=== PATIENT | male | born 1970 | race Two or more races ===

== ENCOUNTER 2020-12-16 04:41 | Inpatient (IN) | payer MEDICAID, OTHER ==
[~2020-12-16] VITALS: Ht 175.3 cm; Wt 78.0 kg
[~2020-12-16 04:41] MED LIST: ALBU6.7H9 INH; BACL-141 MT; BENZ-16 MT; IBUP-2029 MT; MED4 MT
[2020-12-16] MEDS ORDERED: SODIUM CHLORIDE 0.9% 1000ML BAG (SEPSIS BOLUS) IV ONE (05:30)
[2020-12-16 05:45] LABS: CHLORIDE 100 mEq/L (98-107)
[2020-12-16 05:46] LABS: HEMATOCRIT. 47.7 % (42.0-52.0); HEMOGLOBIN. 15.8 g/dL (14.0-18.0); MEAN CORPUSCULAR HEMOGLOBIN 30.4 pg (28.0-32.0); MEAN PLATELET VOLUME 8.7 fl (7.4-10.4); PLATELET 299 x1000/uL (130-400); RED BLOOD CELL COUNT 5.19 mill/uL (4.7-6.1)
[2020-12-16 05:53] LABS: CREATINE KINASE 149 IU/L (39-308)
[2020-12-16] MEDS ORDERED: CEFTRIAXONE 1 G PREMIX 50 ML IV ONE (06:15)
[2020-12-16] MEDS ORDERED: AZITHROMYCIN 500 MG in DEXT 5% WATER 250 ML IV SCH (06:15)
[2020-12-16 06:29] LABS: PLATELET ESTIMATE NORMAL
[2020-12-16 07:03] LABS: BG CARBOXYHEMOGLOBIN 0.9 % (0.5-1.5); BG DEOXYHEMOGLOBIN 12.1 % (0.0-5.0); BG FRACTION INSPIRED OXYGEN 100; BG HCO3 ACT 22.1 mmol/L (22.0-26.0); BG METHEMOGLOBIN 0.3 % (0.0-1.5); BG OXYGEN SATURATION 87.8 % (92.0-98.5); BG OXYHEMOGLOBIN 86.7 % (94.0-97.0); BG PCO2 29.8 mmHg (35.0-45.0); BG PH 7.489 (7.350-7.450); BG PO2 50.3 mmHg (75.0-100.0); BG SAMPLE SITE RIGHT RADIAL
[2020-12-16] MEDS ORDERED: MAGNESIUM/ALUMINUM HYDROXIDE/SIMETHICONE 30ML UDC PO PRN (07:45)
[2020-12-16] MEDS ORDERED: ACETAMINOPHEN 325MG TABLET PO PRN (07:45)
[2020-12-16] MEDS ORDERED: ONDANSETRON HCL 4MG/2ML INJ IV PRN (07:45)
[2020-12-16] MEDS ORDERED: ALBUTEROL 6.7GM HFA INHALER ORI PRN (07:45)
[2020-12-16] MEDS ORDERED: DOCUSATE SODIUM 100MG CAPSULE PO PRN (07:45)
[2020-12-16] MEDS ORDERED: KETOROLAC 15MG/ML VIAL IV PRN (07:45)
[2020-12-16] MEDS ORDERED: CLONIDINE 0.1MG TABLET PO PRN (07:45)
[2020-12-16 08:23] LABS: CLARITY URINE CLEAR (CLEAR); COLOR URINE DARK YELLOW (YELLOW); KETONES URINE 2+ (NEGATIVE); LEUKOCYTE ESTERASE URINE NEGATIVE (NEGATIVE); NITRITE URINE NEGATIVE (NEGATIVE); OCCULT BLOOD URINE 1+ (NEGATIVE); PROTEIN URINE 3+ (NEGATIVE); SPECIFIC GRAVITY URINE 1.025 (1.005-1.030)
[2020-12-16 08:58] LABS: OPIATES URINE SCREEN NEGATIVE (NEGATIVE); PHENCYCLIDINE URINE SCREEN NEGATIVE (NEGATIVE)
[2020-12-16 08:59] LABS: *AMPHETAMINES SCREEN URINE NEGATIVE (NEGATIVE); *BARBITURATES SCREEN URINE NEGATIVE (NEGATIVE); *BENZODIAZEPINES SCREEN URINE NEGATIVE (NEGATIVE); *COCAINE SCREEN URINE NEGATIVE (NEGATIVE); CANNABINOID URINE SCREEN NEGATIVE (NEGATIVE); METHADONE URINE SCREEN NEGATIVE (NEGATIVE)
[2020-12-16] MEDS ORDERED: CEFTRIAXONE 1 G PREMIX 50 ML IV SCH (09:00)
[2020-12-16 09:09] LABS: FIBRINOGEN 612 mg/dL (200-400); INR 1.1; PROTHROMBIN TIME 11.6 sec (9.6-11.0)
[2020-12-16 09:16] LABS: FOLIC ACID (FOLATE) SERUM 13.5 ng/mL (>5.38)
[2020-12-16 09:31] LABS: D-DIMER > 35.20 mg/L FEU (<0.50)
[2020-12-16] MEDS: ASPIRIN 81MG EC TABLET PO SCH (10:26)
[2020-12-16] MEDS: DEXAMETHASONE 10 MG/ML VIAL IV SCH (10:26)
[2020-12-16] MEDS: GUAIFENESIN/DM 600MG/30MG ER TAB 12HR PO SCH ×2 (10:26→20:57)
[2020-12-16] MEDS: ENOXAPARIN 40MG/0.4ML SYR SUBCUT SCH (10:26)
[2020-12-16] MEDS: ZINC SULFATE 220 MG ( 50 ) CAPSULE PO SCH (10:27)
[2020-12-16] MEDS: FAMOTIDINE 20MG TABLET PO SCH ×2 (10:27→20:56)
[2020-12-16] MEDS: ASCORBIC ACID 500 MG TABLET PO SCH ×2 (10:27→20:56)
[2020-12-16] MEDS: ACETAMINOPHEN 325MG TABLET PO PRN ×2 (13:31→20:56)
[2020-12-16 14:07] VITALS: BP 142/93
[2020-12-16 16:00] VITALS: BP 128/88
[2020-12-16] MEDS ORDERED: DEXTROSE 50% WATER 50ML SYRINGE IV PRN (17:30)
[2020-12-16] MEDS: BLOOD SUGAR DIAGNOSTIC STRIP TEST SCH ×2 (17:44→20:58)
[2020-12-16] MEDS: INSULIN LISPRO 100 UNITS/ML SUBCUT SCH ×3 (17:47→21:00)
[2020-12-16 20:00] VITALS: BP 127/91
[2020-12-16] MEDS ORDERED: ZOLPIDEM TARTRATE 5MG TABLET PO PRN (21:00)
[2020-12-17] VITALS: BP 123/85
[2020-12-17 00:04] LABS: CREATINE KINASE 179 IU/L (39-308)
[2020-12-17 00:05] LABS: CREATINE KINASE MB FRACTION 2.6 ng/mL (0.5-3.6)
[2020-12-17 04:00] VITALS: BP 90/57
[2020-12-17] MEDS ORDERED: AZITHROMYCIN 500 MG in DEXT 5% WATER 250 ML IV SCH (06:00)
[2020-12-17] MEDS ORDERED: CEFTRIAXONE 1,000 MG in DEXTROSE 5% WATER 50 ML IV SCH (06:00)
[2020-12-17 08:00] VITALS: BP 134/81
[2020-12-17] MEDS: INSULIN LISPRO 100 UNITS/ML SUBCUT SCH ×4 (08:10→21:14)
[2020-12-17] MEDS: GUAIFENESIN/DM 600MG/30MG ER TAB 12HR PO SCH ×2 (08:33→21:15)
[2020-12-17] MEDS: ENOXAPARIN 40MG/0.4ML SYR SUBCUT SCH (08:34)
[2020-12-17] MEDS: ASCORBIC ACID 500 MG TABLET PO SCH ×2 (08:34→21:15)
[2020-12-17] MEDS: ZINC SULFATE 220 MG ( 50 ) CAPSULE PO SCH (08:34)
[2020-12-17] MEDS: DEXAMETHASONE 10 MG/ML VIAL IV SCH (08:34)
[2020-12-17] MEDS: ASPIRIN 81MG EC TABLET PO SCH (08:34)
[2020-12-17] MEDS: FAMOTIDINE 20MG TABLET PO SCH ×2 (08:34→21:15)
[2020-12-17] MEDS: AZITHROMYCIN 500 MG in DEXT 5% WATER 250 ML IV SCH (08:35)
[2020-12-17] MEDS: CEFTRIAXONE 1,000 MG in DEXTROSE 5% WATER 50 ML IV SCH (08:35)
[2020-12-17] MEDS: BLOOD SUGAR DIAGNOSTIC STRIP TEST SCH ×4 (08:35→21:15)
[2020-12-17] MEDS: ALBUTEROL 6.7GM HFA INHALER ORI SCH ×3 (08:40→21:15)
[2020-12-17] MEDS: CHOLECALCIFEROL (D3) 1000 UNIT TABLET PO SCH (08:41)
[2020-12-17] MEDS ORDERED: CEFTRIAXONE 1 G PREMIX 50 ML IV SCH (09:00)
[2020-12-17 10:01] LABS: HEMOGLOBIN. 15.6 g/dL (14.0-18.0); MEAN CORPUSCULAR HEMOGLOBIN 30.6 pg (28.0-32.0); MEAN CORPUSCULAR VOLUME 92.4 fL (80.0-94.0); MEAN PLATELET VOLUME 9.2 fl (7.4-10.4); PLATELET 214 x1000/uL (130-400); RED BLOOD CELL COUNT 5.09 mill/uL (4.7-6.1); RED CELL DISTRIBUTION WIDTH 12.9 % (11.6-14.6)
[2020-12-17 10:10] LABS: CHLORIDE 104 mEq/L (98-107)
[2020-12-17 10:16] LABS: PHOSPHORUS 2.2 mg/dL (2.5-4.9)
[2020-12-17 12:00] VITALS: BP 128/71
[2020-12-17] MEDS: ACETAMINOPHEN 325MG TABLET PO PRN ×2 (15:59→23:47)
[2020-12-17 16:08] VITALS: BP 116/79
[2020-12-17 16:51] LABS: PLATELET ESTIMATE NORMAL
[2020-12-17 20:00] VITALS: BP 125/88
[2020-12-18] VITALS: BP 116/75
[2020-12-18 04:00] VITALS: BP 109/80
[2020-12-18] MEDS: GUAIFENESIN 200MG/10ML SUGAR FREE UDC PO PRN (04:38)
[2020-12-18] MEDS: ALBUTEROL 6.7GM HFA INHALER ORI SCH ×4 (04:39→22:08)
[2020-12-18] MEDS: BLOOD SUGAR DIAGNOSTIC STRIP TEST SCH ×4 (07:24→21:00)
[2020-12-18] MEDS: INSULIN LISPRO 100 UNITS/ML SUBCUT SCH ×4 (07:24→22:06)
[2020-12-18 08:00] VITALS: BP 124/81
[2020-12-18] MEDS: CEFTRIAXONE 1,000 MG in DEXTROSE 5% WATER 50 ML IV SCH (08:12)
[2020-12-18] MEDS: ENOXAPARIN 40MG/0.4ML SYR SUBCUT SCH (08:13)
[2020-12-18] MEDS: DEXAMETHASONE 10 MG/ML VIAL IV SCH (08:13)
[2020-12-18] MEDS: AZITHROMYCIN 500 MG in DEXT 5% WATER 250 ML IV SCH (08:13)
[2020-12-18] MEDS: ZINC SULFATE 220 MG ( 50 ) CAPSULE PO SCH (08:13)
[2020-12-18] MEDS: GUAIFENESIN/DM 600MG/30MG ER TAB 12HR PO SCH ×2 (08:13→22:06)
[2020-12-18] MEDS: ASPIRIN 81MG EC TABLET PO SCH (08:14)
[2020-12-18] MEDS: CHOLECALCIFEROL (D3) 1000 UNIT TABLET PO SCH (08:14)
[2020-12-18] MEDS: FAMOTIDINE 20MG TABLET PO SCH ×2 (08:14→22:06)
[2020-12-18] MEDS: ASCORBIC ACID 500 MG TABLET PO SCH ×2 (08:14→22:06)
[2020-12-18] MEDS: ACETAMINOPHEN 325MG TABLET PO PRN ×2 (08:14→12:25)
[2020-12-18 12:00] VITALS: BP 124/83
[2020-12-18 15:52] VITALS: BP 124/87
[2020-12-18 20:00] VITALS: BP 135/87
[2020-12-18] MEDS ORDERED: IOHEXOL-350 100 ML BOTTLE ONE (23:27)
[2020-12-19] VITALS: BP 120/86
[2020-12-19 04:00] VITALS: BP 132/86
[2020-12-19] MEDS: ALBUTEROL 6.7GM HFA INHALER ORI SCH ×4 (04:16→21:15)
[2020-12-19] MEDS: ACETAMINOPHEN 325MG TABLET PO PRN ×3 (04:24→12:34)
[2020-12-19] MEDS: BLOOD SUGAR DIAGNOSTIC STRIP TEST SCH ×4 (07:40→21:15)
[2020-12-19] MEDS: NITROGLYCERIN 0.4MG TABLET SL SL PRN (07:44)
[2020-12-19 07:59] LABS: HEMOGLOBIN. 14.6 g/dL (14.0-18.0); MEAN CORPUSCULAR HEMOGLOBIN 31.3 pg (28.0-32.0); MEAN CORPUSCULAR VOLUME 91.8 fL (80.0-94.0); MEAN PLATELET VOLUME 8.9 fl (7.4-10.4); PLATELET 185 x1000/uL (130-400); RED BLOOD CELL COUNT 4.68 mill/uL (4.7-6.1); RED CELL DISTRIBUTION WIDTH 13.2 % (11.6-14.6)
[2020-12-19 08:00] VITALS: BP 140/76
[2020-12-19] MEDS: INSULIN LISPRO 100 UNITS/ML SUBCUT SCH ×4 (08:10→21:00)
[2020-12-19] MEDS ORDERED: MORPHINE SULFATE 2 MG/ML CPJ (NOT FOR IM USE) IV SCH (08:15)
[2020-12-19] MEDS: CEFTRIAXONE 1,000 MG in DEXTROSE 5% WATER 50 ML IV SCH (08:23)
[2020-12-19] MEDS: DEXAMETHASONE 10 MG/ML VIAL IV SCH (08:24)
[2020-12-19] MEDS: ENOXAPARIN 40MG/0.4ML SYR SUBCUT SCH (08:24)
[2020-12-19] MEDS: CHOLECALCIFEROL (D3) 1000 UNIT TABLET PO SCH (08:25)
[2020-12-19] MEDS: FAMOTIDINE 20MG TABLET PO SCH ×2 (08:25→21:11)
[2020-12-19] MEDS: ZINC SULFATE 220 MG ( 50 ) CAPSULE PO SCH (08:25)
[2020-12-19] MEDS: GUAIFENESIN/DM 600MG/30MG ER TAB 12HR PO SCH ×2 (08:25→21:11)
[2020-12-19] MEDS: ASPIRIN 81MG EC TABLET PO SCH (08:26)
[2020-12-19] MEDS: ASCORBIC ACID 500 MG TABLET PO SCH ×2 (08:51→21:11)
[2020-12-19] MEDS: AZITHROMYCIN 500 MG in DEXT 5% WATER 250 ML IV SCH (08:53)
[2020-12-19 08:55] LABS: CHLORIDE 103 mEq/L (98-107)
[2020-12-19] MEDS: CEFEPIME 1,000 MG in DEXTROSE 5% WATER 50 ML IV SCH ×2 (11:20→21:11)
[2020-12-19 12:00] VITALS: BP 105/80
[2020-12-19 12:17] LABS: CREATINE KINASE 77 IU/L (39-308)
[2020-12-19 12:18] LABS: CREATINE KINASE MB FRACTION 1.3 ng/mL (0.5-3.6)
[2020-12-19 13:36] LABS: PLATELET ESTIMATE NORMAL
[2020-12-19 16:00] VITALS: BP 126/89
[2020-12-19 19:50] VITALS: BP 141/82
[2020-12-20] VITALS (8 sets, daily range): BP systolic 117–140; BP diastolic 79–95
[2020-12-20] MEDS: ACETAMINOPHEN 325MG TABLET PO PRN (01:45)
[2020-12-20] MEDS: ALBUTEROL 6.7GM HFA INHALER ORI SCH ×5 (03:44→21:15)
[2020-12-20] MEDS: INSULIN LISPRO 100 UNITS/ML SUBCUT SCH ×4 (07:24→21:00)
[2020-12-20] MEDS: BLOOD SUGAR DIAGNOSTIC STRIP TEST SCH ×4 (07:24→21:30)
[2020-12-20] MEDS: CEFEPIME 1,000 MG in DEXTROSE 5% WATER 50 ML IV SCH ×2 (08:38→21:23)
[2020-12-20] MEDS: ASCORBIC ACID 500 MG TABLET PO SCH ×2 (08:39→21:23)
[2020-12-20] MEDS: ASPIRIN 81MG EC TABLET PO SCH (08:39)
[2020-12-20] MEDS: GUAIFENESIN/DM 600MG/30MG ER TAB 12HR PO SCH ×2 (08:39→21:23)
[2020-12-20] MEDS: ZINC SULFATE 220 MG ( 50 ) CAPSULE PO SCH (08:39)
[2020-12-20] MEDS: FAMOTIDINE 20MG TABLET PO SCH ×2 (08:39→21:23)
[2020-12-20] MEDS: CHOLECALCIFEROL (D3) 1000 UNIT TABLET PO SCH (08:39)
[2020-12-20] MEDS: DEXAMETHASONE 10 MG/ML VIAL IV SCH (08:39)
[2020-12-20] MEDS: ENOXAPARIN 40MG/0.4ML SYR SUBCUT SCH (08:41)
[2020-12-20] MEDS: NITROGLYCERIN 0.4MG TABLET SL SL PRN ×2 (08:59→09:04)
[2020-12-20] MEDS: AZITHROMYCIN 500 MG in DEXT 5% WATER 250 ML IV SCH (10:01)
[2020-12-21] MEDS: ALBUTEROL 6.7GM HFA INHALER ORI SCH ×4 (03:18→20:19)
[2020-12-21 04:00] VITALS: BP 122/83
[2020-12-21] MEDS: BLOOD SUGAR DIAGNOSTIC STRIP TEST SCH ×4 (07:40→20:01)
[2020-12-21 08:00] VITALS: BP 123/84
[2020-12-21] MEDS: INSULIN LISPRO 100 UNITS/ML SUBCUT SCH ×4 (08:10→20:30)
[2020-12-21] MEDS: CEFEPIME 1,000 MG in DEXTROSE 5% WATER 50 ML IV SCH ×2 (08:45→20:01)
[2020-12-21] MEDS: ENOXAPARIN 40MG/0.4ML SYR SUBCUT SCH (08:46)
[2020-12-21] MEDS: ASCORBIC ACID 500 MG TABLET PO SCH ×2 (08:46→20:01)
[2020-12-21] MEDS: GUAIFENESIN/DM 600MG/30MG ER TAB 12HR PO SCH ×2 (08:46→20:01)
[2020-12-21] MEDS: ZINC SULFATE 220 MG ( 50 ) CAPSULE PO SCH (08:46)
[2020-12-21] MEDS: ASPIRIN 81MG EC TABLET PO SCH (08:47)
[2020-12-21] MEDS: ACETAMINOPHEN 325MG TABLET PO PRN ×2 (08:47→22:38)
[2020-12-21] MEDS: DEXAMETHASONE 10 MG/ML VIAL IV SCH (08:47)
[2020-12-21] MEDS: FAMOTIDINE 20MG TABLET PO SCH ×2 (08:47→20:01)
[2020-12-21] MEDS: CHOLECALCIFEROL (D3) 1000 UNIT TABLET PO SCH (08:47)
[2020-12-21 12:00] VITALS: BP 144/96
[2020-12-21 16:00] VITALS: BP 130/90
[2020-12-21 16:43] LABS: BG BASE EXCESS 0.7 mmol/L (-2.0-2.0); BG CARBOXYHEMOGLOBIN 0.3 % (0.5-1.5); BG DEOXYHEMOGLOBIN 0.9 % (0.0-5.0); BG HCO3 ACT 24.4 mmol/L (22.0-26.0); BG METHEMOGLOBIN 0.2 % (0.0-1.5); BG OXYGEN SATURATION 99.1 % (92.0-98.5); BG OXYHEMOGLOBIN 98.6 % (94.0-97.0); BG PCO2 36.5 mmHg (35.0-45.0); BG PH 7.443 (7.350-7.450); BG PO2 187.8 mmHg (75.0-100.0); BG SAMPLE SITE RIGHT RADIAL; BG TOTAL HEMOGLOBIN 15.5 g/dL (12.0-18.0); BG VENT MODE MASK - CPAP
[2020-12-21 20:00] VITALS: BP 111/83
[2020-12-22] VITALS: BP 121/91
[2020-12-22] MEDS: ALBUTEROL 6.7GM HFA INHALER ORI SCH ×5 (03:10→21:39)
[2020-12-22 04:00] VITALS: BP 121/87
[2020-12-22] MEDS: BLOOD SUGAR DIAGNOSTIC STRIP TEST SCH ×4 (06:07→20:51)
[2020-12-22] MEDS: INSULIN LISPRO 100 UNITS/ML SUBCUT SCH ×4 (06:08→20:50)
[2020-12-22 08:00] VITALS: BP 125/83
[2020-12-22] MEDS: CEFEPIME 1,000 MG in DEXTROSE 5% WATER 50 ML IV SCH ×2 (09:44→20:49)
[2020-12-22] MEDS: FAMOTIDINE 20MG TABLET PO SCH ×2 (09:45→20:49)
[2020-12-22] MEDS: GUAIFENESIN/DM 600MG/30MG ER TAB 12HR PO SCH ×2 (09:45→20:49)
[2020-12-22] MEDS: ZINC SULFATE 220 MG ( 50 ) CAPSULE PO SCH (09:45)
[2020-12-22] MEDS: CHOLECALCIFEROL (D3) 1000 UNIT TABLET PO SCH (09:45)
[2020-12-22] MEDS: ASCORBIC ACID 500 MG TABLET PO SCH ×2 (09:45→20:49)
[2020-12-22] MEDS: ASPIRIN 81MG EC TABLET PO SCH (09:45)
[2020-12-22] MEDS: ENOXAPARIN 40MG/0.4ML SYR SUBCUT SCH (09:47)
[2020-12-22] MEDS: DEXAMETHASONE 10 MG/ML VIAL IV SCH (11:58)
[2020-12-22 12:00] VITALS: BP 124/82
[2020-12-22] MEDS: GUAIFENESIN 200MG/10ML SUGAR FREE UDC PO PRN (15:27)
[2020-12-22 16:00] VITALS: BP 124/86
[2020-12-22 20:00] VITALS: BP 131/89
[2020-12-23] VITALS: BP 118/85
[2020-12-23] MEDS: ALBUTEROL 6.7GM HFA INHALER ORI SCH ×4 (01:42→21:16)
[2020-12-23 04:00] VITALS: BP 117/88
[2020-12-23] MEDS: GUAIFENESIN 200MG/10ML SUGAR FREE UDC PO PRN ×2 (06:20→22:57)
[2020-12-23] MEDS: BLOOD SUGAR DIAGNOSTIC STRIP TEST SCH ×4 (07:33→20:41)
[2020-12-23 08:00] VITALS: BP 129/83
[2020-12-23] MEDS: INSULIN LISPRO 100 UNITS/ML SUBCUT SCH ×4 (08:08→20:41)
[2020-12-23] MEDS: DEXAMETHASONE 10 MG/ML VIAL IV SCH (08:11)
[2020-12-23] MEDS: ENOXAPARIN 40MG/0.4ML SYR SUBCUT SCH (08:11)
[2020-12-23] MEDS: CEFEPIME 1,000 MG in DEXTROSE 5% WATER 50 ML IV SCH ×2 (08:12→20:40)
[2020-12-23] MEDS: ASCORBIC ACID 500 MG TABLET PO SCH ×2 (09:00→20:41)
[2020-12-23] MEDS: GUAIFENESIN/DM 600MG/30MG ER TAB 12HR PO SCH ×2 (09:00→20:40)
[2020-12-23] MEDS: FAMOTIDINE 20MG TABLET PO SCH ×2 (09:00→20:41)
[2020-12-23] MEDS: ZINC SULFATE 220 MG ( 50 ) CAPSULE PO SCH (09:00)
[2020-12-23] MEDS: ASPIRIN 81MG EC TABLET PO SCH (09:00)
[2020-12-23] MEDS: CHOLECALCIFEROL (D3) 1000 UNIT TABLET PO SCH (09:00)
[2020-12-23 12:00] VITALS: BP 117/82
[2020-12-23 16:00] VITALS: BP 122/85
[2020-12-23 20:00] VITALS: BP_SYST 120; BP_DIAS 81; BP_DIAS 84
[2020-12-24] VITALS: BP 117/78
[2020-12-24] MEDS: ALBUTEROL 6.7GM HFA INHALER ORI SCH ×2 (01:07→15:00)
[2020-12-24 04:00] VITALS: BP 127/83
[2020-12-24] MEDS: INSULIN LISPRO 100 UNITS/ML SUBCUT SCH ×4 (07:42→20:32)
[2020-12-24 08:00] VITALS: BP 115/77
[2020-12-24] MEDS: BLOOD SUGAR DIAGNOSTIC STRIP TEST SCH ×4 (08:17→20:32)
[2020-12-24] MEDS: GUAIFENESIN/DM 600MG/30MG ER TAB 12HR PO SCH ×2 (08:18→20:32)
[2020-12-24] MEDS: ZINC SULFATE 220 MG ( 50 ) CAPSULE PO SCH (08:19)
[2020-12-24] MEDS: ASCORBIC ACID 500 MG TABLET PO SCH ×2 (08:19→20:32)
[2020-12-24] MEDS: ASPIRIN 81MG EC TABLET PO SCH (08:19)
[2020-12-24] MEDS: CHOLECALCIFEROL (D3) 1000 UNIT TABLET PO SCH (08:19)
[2020-12-24] MEDS: FAMOTIDINE 20MG TABLET PO SCH ×2 (08:19→20:32)
[2020-12-24] MEDS: DEXAMETHASONE 10 MG/ML VIAL IV SCH (08:20)
[2020-12-24] MEDS: ENOXAPARIN 40MG/0.4ML SYR SUBCUT SCH (08:20)
[2020-12-24] MEDS: CEFEPIME 1,000 MG in DEXTROSE 5% WATER 50 ML IV SCH ×2 (08:22→20:32)
[2020-12-24 12:05] VITALS: BP 117/79
[2020-12-24 16:07] VITALS: BP 121/84
[2020-12-24 20:00] VITALS: BP 117/84
[2020-12-25] VITALS: BP 108/82
[2020-12-25] MEDS: GUAIFENESIN 200MG/10ML SUGAR FREE UDC PO PRN (00:55)
[2020-12-25 04:00] VITALS: BP 127/80
[2020-12-25] MEDS: ALBUTEROL 6.7GM HFA INHALER ORI SCH ×4 (05:58→21:38)
[2020-12-25] MEDS: BLOOD SUGAR DIAGNOSTIC STRIP TEST SCH ×4 (06:56→21:25)
[2020-12-25 08:00] VITALS: BP 120/79
[2020-12-25] MEDS: CHOLECALCIFEROL (D3) 1000 UNIT TABLET PO SCH (08:51)
[2020-12-25] MEDS: ASPIRIN 81MG EC TABLET PO SCH (08:51)
[2020-12-25] MEDS: GUAIFENESIN/DM 600MG/30MG ER TAB 12HR PO SCH ×2 (08:51→21:39)
[2020-12-25] MEDS: ASCORBIC ACID 500 MG TABLET PO SCH ×2 (08:51→21:38)
[2020-12-25] MEDS: FAMOTIDINE 20MG TABLET PO SCH ×2 (08:51→21:39)
[2020-12-25] MEDS: ZINC SULFATE 220 MG ( 50 ) CAPSULE PO SCH (08:51)
[2020-12-25] MEDS: ENOXAPARIN 40MG/0.4ML SYR SUBCUT SCH (08:51)
[2020-12-25] MEDS: DEXAMETHASONE 10 MG/ML VIAL IV SCH (08:52)
[2020-12-25] MEDS: INSULIN LISPRO 100 UNITS/ML SUBCUT SCH ×4 (08:58→21:40)
[2020-12-25 12:00] VITALS: BP 124/84
[2020-12-25 16:00] VITALS: BP 112/79
[2020-12-25 20:00] VITALS: BP 117/78
[2020-12-25 20:51] LABS: HEMATOCRIT. 44.7 % (42.0-52.0); HEMOGLOBIN. 14.7 g/dL (14.0-18.0); MEAN CORPUSCULAR HEMOGLOBIN 30.5 pg (28.0-32.0); MEAN CORPUSCULAR VOLUME 92.8 fL (80.0-94.0); PLATELET 319 x1000/uL (130-400); RED BLOOD CELL COUNT 4.82 mill/uL (4.7-6.1)
[2020-12-25 21:05] LABS: CHLORIDE 98 mEq/L (98-107)
[2020-12-25 21:23] LABS: PLATELET ESTIMATE NORMAL
[2020-12-26] VITALS: BP 133/88
[2020-12-26 04:00] VITALS: BP 122/71
[2020-12-26] MEDS: ALBUTEROL 6.7GM HFA INHALER ORI SCH ×4 (06:09→21:00)
[2020-12-26] MEDS: BLOOD SUGAR DIAGNOSTIC STRIP TEST SCH ×4 (07:40→21:58)
[2020-12-26] MEDS: INSULIN LISPRO 100 UNITS/ML SUBCUT SCH ×4 (07:59→21:57)
[2020-12-26 08:00] VITALS: BP 124/87
[2020-12-26] MEDS: DEXAMETHASONE 10 MG/ML VIAL IV SCH (08:00)
[2020-12-26] MEDS: ASCORBIC ACID 500 MG TABLET PO SCH ×3 (08:00→21:55)
[2020-12-26] MEDS: CHOLECALCIFEROL (D3) 1000 UNIT TABLET PO SCH (08:00)
[2020-12-26] MEDS: ASPIRIN 81MG EC TABLET PO SCH (08:00)
[2020-12-26] MEDS: ENOXAPARIN 40MG/0.4ML SYR SUBCUT SCH (08:00)
[2020-12-26] MEDS: FAMOTIDINE 20MG TABLET PO SCH ×2 (08:00→21:55)
[2020-12-26] MEDS: GUAIFENESIN/DM 600MG/30MG ER TAB 12HR PO SCH ×2 (08:04→21:55)
[2020-12-26] MEDS: ZINC SULFATE 220 MG ( 50 ) CAPSULE PO SCH (08:06)
[2020-12-26] MEDS: ACETAMINOPHEN 325MG TABLET PO PRN (09:26)
[2020-12-26 12:00] VITALS: BP 123/81
[2020-12-26 16:00] VITALS: BP 134/87
[2020-12-26 20:00] VITALS: BP 121/82
[2020-12-27] VITALS: BP 113/76
[2020-12-27] MEDS: GUAIFENESIN 200MG/10ML SUGAR FREE UDC PO PRN (01:46)
[2020-12-27] MEDS: ALBUTEROL 6.7GM HFA INHALER ORI SCH ×2 (01:47→09:22)
[2020-12-27 04:00] VITALS: BP 112/75
[2020-12-27] MEDS: INSULIN LISPRO 100 UNITS/ML SUBCUT SCH ×4 (07:10→20:27)
[2020-12-27] MEDS: BLOOD SUGAR DIAGNOSTIC STRIP TEST SCH ×4 (07:34→20:19)
[2020-12-27 08:00] VITALS: BP 109/69
[2020-12-27] MEDS: GUAIFENESIN/DM 600MG/30MG ER TAB 12HR PO SCH ×2 (09:21→20:16)
[2020-12-27] MEDS: ASPIRIN 81MG EC TABLET PO SCH (09:21)
[2020-12-27] MEDS: ENOXAPARIN 40MG/0.4ML SYR SUBCUT SCH (09:21)
[2020-12-27] MEDS: CHOLECALCIFEROL (D3) 1000 UNIT TABLET PO SCH (09:21)
[2020-12-27] MEDS: ASCORBIC ACID 500 MG TABLET PO SCH ×2 (09:21→20:16)
[2020-12-27] MEDS: FAMOTIDINE 20MG TABLET PO SCH ×2 (09:22→20:16)
[2020-12-27] MEDS: DEXAMETHASONE 10 MG/ML VIAL IV SCH (09:22)
[2020-12-27] MEDS: ZINC SULFATE 220 MG ( 50 ) CAPSULE PO SCH (09:28)
[2020-12-27] MEDS ORDERED: IPRATROPIUM/ALBUTEROL 0.5-3(2.5)MG/3ML NEB HHN PRN (11:30)
[2020-12-27 12:00] VITALS: BP 110/77
[2020-12-27] MEDS: BENZONATATE 100MG CAPSULE PO SCH ×2 (12:37→21:21)
[2020-12-27 16:00] VITALS: BP 123/79
[2020-12-27 20:00] VITALS: BP 120/79
[2020-12-27] MEDS: IPRATROPIUM/ALBUTEROL 0.5-3(2.5)MG/3ML NEB HHN SCH (20:15)
[2020-12-27] MEDS: BUDESONIDE 0.5MG/2ML NEB HHN SCH (20:15)
[2020-12-28] VITALS: BP 107/65
[2020-12-28] MEDS: IPRATROPIUM/ALBUTEROL 0.5-3(2.5)MG/3ML NEB HHN SCH ×5 (00:46→21:10)
[2020-12-28] MEDS: ACETAMINOPHEN 325MG TABLET PO PRN (01:45)
[2020-12-28 04:00] VITALS: BP 114/72
[2020-12-28] MEDS: BENZONATATE 100MG CAPSULE PO SCH ×3 (05:22→21:22)
[2020-12-28] MEDS: BLOOD SUGAR DIAGNOSTIC STRIP TEST SCH ×4 (05:57→20:07)
[2020-12-28] MEDS: INSULIN LISPRO 100 UNITS/ML SUBCUT SCH ×4 (06:18→20:13)
[2020-12-28 08:00] VITALS: BP 100/63
[2020-12-28] MEDS: CHOLECALCIFEROL (D3) 1000 UNIT TABLET PO SCH (09:00)
[2020-12-28] MEDS: BUDESONIDE 0.5MG/2ML NEB HHN SCH (09:06)
[2020-12-28] MEDS: GUAIFENESIN/DM 600MG/30MG ER TAB 12HR PO SCH ×2 (10:13→20:08)
[2020-12-28] MEDS: ASPIRIN 81MG EC TABLET PO SCH (10:13)
[2020-12-28] MEDS: ZINC SULFATE 220 MG ( 50 ) CAPSULE PO SCH (10:14)
[2020-12-28] MEDS: ASCORBIC ACID 500 MG TABLET PO SCH ×2 (10:14→20:08)
[2020-12-28] MEDS: FAMOTIDINE 20MG TABLET PO SCH ×2 (10:14→20:08)
[2020-12-28] MEDS: ENOXAPARIN 40MG/0.4ML SYR SUBCUT SCH (10:14)
[2020-12-28] MEDS: GUAIFENESIN 200MG/10ML SUGAR FREE UDC PO PRN ×2 (11:39→18:05)
[2020-12-28 12:00] VITALS: BP 118/77
[2020-12-28 16:00] VITALS: BP 111/72
[2020-12-28 20:00] VITALS: BP 100/76
[2020-12-29] VITALS: BP 105/74
[2020-12-29] MEDS: IPRATROPIUM/ALBUTEROL 0.5-3(2.5)MG/3ML NEB HHN SCH ×4 (02:20→21:59)
[2020-12-29 04:00] VITALS: BP 110/80
[2020-12-29] MEDS: GUAIFENESIN 200MG/10ML SUGAR FREE UDC PO PRN ×3 (04:11→20:48)
[2020-12-29] MEDS: BENZONATATE 100MG CAPSULE PO SCH ×3 (05:01→22:04)
[2020-12-29] MEDS: BLOOD SUGAR DIAGNOSTIC STRIP TEST SCH ×4 (05:46→21:45)
[2020-12-29] MEDS: INSULIN LISPRO 100 UNITS/ML SUBCUT SCH ×4 (06:19→22:05)
[2020-12-29] MEDS: BUDESONIDE 0.5MG/2ML NEB HHN SCH (07:41)
[2020-12-29 08:21] VITALS: BP 114/75
[2020-12-29] MEDS: ZINC SULFATE 220 MG ( 50 ) CAPSULE PO SCH (08:27)
[2020-12-29] MEDS: FAMOTIDINE 20MG TABLET PO SCH ×2 (08:27→20:49)
[2020-12-29] MEDS: CHOLECALCIFEROL (D3) 1000 UNIT TABLET PO SCH (08:27)
[2020-12-29] MEDS: GUAIFENESIN/DM 600MG/30MG ER TAB 12HR PO SCH ×2 (08:27→20:49)
[2020-12-29] MEDS: ASPIRIN 81MG EC TABLET PO SCH (08:27)
[2020-12-29] MEDS: ASCORBIC ACID 500 MG TABLET PO SCH ×2 (08:27→20:49)
[2020-12-29] MEDS: ENOXAPARIN 40MG/0.4ML SYR SUBCUT SCH (08:28)
[2020-12-29 12:00] VITALS: BP 115/81
[2020-12-29 16:00] VITALS: BP 113/82
[2020-12-29 20:00] VITALS: BP 108/76
[2020-12-30] VITALS: BP 94/66
[2020-12-30] MEDS: IPRATROPIUM/ALBUTEROL 0.5-3(2.5)MG/3ML NEB HHN SCH ×4 (02:14→21:49)
[2020-12-30 04:00] VITALS: BP 102/73
[2020-12-30] MEDS: BENZONATATE 100MG CAPSULE PO SCH ×3 (06:24→20:34)
[2020-12-30] MEDS: BLOOD SUGAR DIAGNOSTIC STRIP TEST SCH ×4 (06:26→20:08)
[2020-12-30] MEDS: INSULIN LISPRO 100 UNITS/ML SUBCUT SCH ×4 (06:49→20:34)
[2020-12-30 08:00] VITALS: BP 113/75
[2020-12-30] MEDS: ENOXAPARIN 40MG/0.4ML SYR SUBCUT SCH ×2 (08:42→08:53)
[2020-12-30] MEDS: ZINC SULFATE 220 MG ( 50 ) CAPSULE PO SCH (08:42)
[2020-12-30] MEDS: CHOLECALCIFEROL (D3) 1000 UNIT TABLET PO SCH (08:42)
[2020-12-30] MEDS: ASPIRIN 81MG EC TABLET PO SCH (08:42)
[2020-12-30] MEDS: GUAIFENESIN/DM 600MG/30MG ER TAB 12HR PO SCH ×2 (08:42→20:08)
[2020-12-30] MEDS: ASCORBIC ACID 500 MG TABLET PO SCH ×2 (08:42→20:08)
[2020-12-30] MEDS: FAMOTIDINE 20MG TABLET PO SCH ×2 (08:42→20:08)
[2020-12-30] MEDS: BUDESONIDE 0.5MG/2ML NEB HHN SCH ×2 (09:05→21:49)
[2020-12-30 12:00] VITALS: BP 113/78
[2020-12-30 16:00] VITALS: BP 110/86
[2020-12-30 20:00] VITALS: BP 105/78
[2020-12-30] MEDS: ACETAMINOPHEN 325MG TABLET PO PRN (20:35)
[2020-12-31] VITALS: BP 108/73
[2020-12-31] MEDS: IPRATROPIUM/ALBUTEROL 0.5-3(2.5)MG/3ML NEB HHN SCH ×4 (02:56→21:09)
[2020-12-31 04:00] VITALS: BP 102/73
[2020-12-31] MEDS: BLOOD SUGAR DIAGNOSTIC STRIP TEST SCH ×4 (06:01→21:00)
[2020-12-31] MEDS: BENZONATATE 100MG CAPSULE PO SCH ×3 (06:01→22:35)
[2020-12-31] MEDS: INSULIN LISPRO 100 UNITS/ML SUBCUT SCH ×4 (06:12→22:37)
[2020-12-31 08:00] VITALS: BP 101/69
[2020-12-31] MEDS: ENOXAPARIN 40MG/0.4ML SYR SUBCUT SCH (09:00)
[2020-12-31] MEDS: ASCORBIC ACID 500 MG TABLET PO SCH ×2 (09:56→22:35)
[2020-12-31] MEDS: CHOLECALCIFEROL (D3) 1000 UNIT TABLET PO SCH (09:56)
[2020-12-31] MEDS: ZINC SULFATE 220 MG ( 50 ) CAPSULE PO SCH (09:56)
[2020-12-31] MEDS: GUAIFENESIN/DM 600MG/30MG ER TAB 12HR PO SCH ×2 (09:56→22:34)
[2020-12-31] MEDS: FAMOTIDINE 20MG TABLET PO SCH ×2 (09:56→22:35)
[2020-12-31] MEDS: ASPIRIN 81MG EC TABLET PO SCH (09:56)
[2020-12-31 11:29] LABS: BG BASE EXCESS 3.2 mmol/L (-2.0-2.0); BG CARBOXYHEMOGLOBIN 0.5 % (0.5-1.5); BG DEOXYHEMOGLOBIN 9.2 % (0.0-5.0); BG FRACTION INSPIRED OXYGEN 21; BG HCO3 ACT 25.5 mmol/L (22.0-26.0); BG METHEMOGLOBIN 0.1 % (0.0-1.5); BG OXYGEN SATURATION 90.7 % (92.0-98.5); BG OXYHEMOGLOBIN 90.2 % (94.0-97.0); BG PCO2 32.2 mmHg (35.0-45.0); BG PH 7.516 (7.350-7.450); BG PO2 55.4 mmHg (75.0-100.0); BG SAMPLE SITE RIGHT BRACHIAL; BG TOTAL HEMOGLOBIN 14.8 g/dL (12.0-18.0); BG VENT MODE ROOM AIR
[2020-12-31 16:00] VITALS: BP 100/75
[2020-12-31 20:00] VITALS: BP 98/68
[2021-01-01] VITALS: BP 101/68
[2021-01-01] MEDS: IPRATROPIUM/ALBUTEROL 0.5-3(2.5)MG/3ML NEB HHN SCH ×2 (02:42→09:51)
[2021-01-01 04:00] VITALS: BP 94/68
[2021-01-01] MEDS: BENZONATATE 100MG CAPSULE PO SCH (06:00)
[2021-01-01] MEDS: BLOOD SUGAR DIAGNOSTIC STRIP TEST SCH ×2 (06:40→11:47)
[2021-01-01] MEDS: INSULIN LISPRO 100 UNITS/ML SUBCUT SCH ×2 (07:10→12:12)
[2021-01-01 08:00] VITALS: BP 102/69
[2021-01-01] MEDS: CHOLECALCIFEROL (D3) 1000 UNIT TABLET PO SCH (09:42)
[2021-01-01] MEDS: FAMOTIDINE 20MG TABLET PO SCH (09:42)
[2021-01-01] MEDS: ASCORBIC ACID 500 MG TABLET PO SCH (09:42)
[2021-01-01] MEDS: ZINC SULFATE 220 MG ( 50 ) CAPSULE PO SCH (09:42)
[2021-01-01] MEDS: GUAIFENESIN/DM 600MG/30MG ER TAB 12HR PO SCH (09:42)
[2021-01-01] MEDS: ASPIRIN 81MG EC TABLET PO SCH (09:42)
[2021-01-01] MEDS: ENOXAPARIN 40MG/0.4ML SYR SUBCUT SCH (10:56)
[2021-01-01 12:00] VITALS: BP 112/74
[2021-01-01 12:13] VITALS: BP 112/94
== END 2021-01-01 13:30 | disposition home or self-care (01) | DRG 720 ==
LOC: ER 04:41 → EDBEDREQ 05:45 → 7WST 06:12 → EDBEDREQ 06:32 → EDBEDREQTM 06:32 → CANRESERV 08:40 → ENRESERV 08:40 → 7EST 12-26 18:18
PROVIDERS: ADMIT Internal Medicine; ATTEND Internal Medicine
PROC: 5A09357 Assistance with Respiratory Ventilation, Less than 24 Consecutive Hours, Continuous Positive Airway Pressure (ICD-10-PCS; principal; 2020-12-18)
PROC: 5A09357 Assistance with Respiratory Ventilation, Less than 24 Consecutive Hours, Continuous Positive Airway Pressure (ICD-10-PCS; 2020-12-19)
PROC: 5A09357 Assistance with Respiratory Ventilation, Less than 24 Consecutive Hours, Continuous Positive Airway Pressure (ICD-10-PCS; 2020-12-20)
PROC: 5A09357 Assistance with Respiratory Ventilation, Less than 24 Consecutive Hours, Continuous Positive Airway Pressure (ICD-10-PCS; 2020-12-21)
PROC: 5A09357 Assistance with Respiratory Ventilation, Less than 24 Consecutive Hours, Continuous Positive Airway Pressure (ICD-10-PCS; 2020-12-22)
PROC: 5A09357 Assistance with Respiratory Ventilation, Less than 24 Consecutive Hours, Continuous Positive Airway Pressure (ICD-10-PCS; 2020-12-23)
PROC: 5A09357 Assistance with Respiratory Ventilation, Less than 24 Consecutive Hours, Continuous Positive Airway Pressure (ICD-10-PCS; 2020-12-24)
DX: A41.89 Other specified sepsis (principal); U07.1 COVID-19; J96.01 Acute respiratory failure with hypoxia; J12.82 Pneumonia due to coronavirus disease 2019; R65.20 Severe sepsis without septic shock; E44.0 Moderate protein-calorie malnutrition; E11.9 Type 2 diabetes mellitus without complications; R74.01 Elevation of levels of liver transaminase levels; Z79.4 Long term (current) use of insulin; Z68.25 Body mass index [BMI] 25.0-25.9, adult; Z79.899 Other long term (current) drug therapy
CPT/HCPCS: 36415; 36600; 71045; 71275; 80048; 80053; 80061; 80305; 81003; 82375; 82550; 82553; 82607; 82728; 82746; 82805; 82962; 83036; 83540; 83550; 83605; 83615; 83735; 83880; 84100; 84145; 84484; 85025; 85379; 85384; 86140; 87426; 93005; 93970; 94640; 94660; 97116; 97162; 97530; 99285; J0456; J0692; J0696; J1100; J1650; J1815; J1885; J2270; J7030; J7040; J7060; J7626; Q9967